=== PATIENT | male | born 1995 | race Caucasian/White ===

== ENCOUNTER 2023-08-24 14:47 | Emergency (ER) | payer OTHER ==
[~2023-08-24] VITALS: Ht 182.8 cm; Wt 72.6 kg
== END 2023-08-24 15:36 | disposition home or self-care (01) ==
LOC: ED 14:47
DX: S80.12XA Contusion of left lower leg, initial encounter (principal); J45.909 Unspecified asthma, uncomplicated; Z86.718 Personal history of other venous thrombosis and embolism; Z91.030 Bee allergy status; Z88.8 Allergy status to other drugs, medicaments and biological substances; X58.XXXA Exposure to other specified factors, initial encounter; Y93.89 Activity, other specified; Y92.89 Other specified places as the place of occurrence of the external cause; Y99.8 Other external cause status

== ENCOUNTER 2024-07-18 17:50 | Emergency (ER) | payer OTHER ==
[~2024-07-18] VITALS: Ht 182.8 cm; Wt 80.7 kg
[2024-07-18] MEDS ORDERED: PREDNISONE10 M1 PO (18:08)
[2024-07-18] MEDS ORDERED: HYDROXYZINE HCL25 MG PO (18:09)
[2024-07-18] MEDS ORDERED: methylPREDNISolone acetate 40 MG/ML VIAL IM ONE (18:10)
== END 2024-07-18 18:17 | disposition home or self-care (01) ==
LOC: ED 17:50
DX: L25.5 Unspecified contact dermatitis due to plants, except food (principal); Z91.030 Bee allergy status; Z88.8 Allergy status to other drugs, medicaments and biological substances

== ENCOUNTER 2024-10-21 17:38 | Emergency (ER) | payer OTHER ==
[~2024-10-21 17:38] MED LIST: HYDROXYZINE HCL25 MG PO; PREDNISONE10 M1 PO
[2024-10-21 19:06] LABS: BASO # 0.0 10*3/uL (0.0-0.1); BASO % 0.3 % (0.0-1.0); EOS # 0.0 10*3/uL (0.0-0.4); EOS % 0.2 % (1.0-4.0); MEAN CELL VOLUME 87.8 fl (80.0-94.0); MEAN CORPUSCULAR HGB 31.1 pg (27.0-31.0); MEAN PLATELET VOLUME 9.8 fl (9.6-12.3); MONO # 0.5 10*3/uL (0.1-1.0); MONO % 4.6 % (3.0-9.0); NEUT # 8.0 10*3/uL (2.3-7.9); NEUT % 80.6 % (47.0-73.0); NUCLEATED RED BLOOD CELL 0.0 % (0.0-0.0); NUCLEATED RED BLOOD CELL 0.0 10*3/uL (0.0-0.0); PLATELET COUNT AUTOMATED 175 10*3/uL (130-400); RED CELL DISTRI WIDTH 11.5 % (0-14.5)
[2024-10-21 19:22] LABS: URINE AMPHETAMINES Negative (1000ng/ml); URINE BARBITURATES Negative (200ng/ml); URINE BENZODIAZEPINES Positive (200ng/ml); URINE CANNABINOIDS (THC) Positive (50ng/ml); URINE COCAINE Negative (300ng/ml); URINE METHADONE Negative (300ng/ml); URINE OPIATES Negative (300ng/ml); URINE PHENCYCLIDINE Negative (25ng/ml)
[2024-10-21 19:30] LABS: BUN 14 mg/dl (9-23); CPK 186 U/L (34-171); SGPT/ALT 20 U/L (5-49)
[2024-10-21 19:49] LABS: ETHYL ALCOHOL < 3.0 mg/dl (<3)
[2024-10-22] MEDS ORDERED: KEPPRA500 MG PO (06:03)
[2024-10-22] MEDS ORDERED: LEVETIRACETAM 500 MG TAB PO ONE (06:05)
== END 2024-10-22 06:32 | disposition home or self-care (01) ==
LOC: ED 17:38
PROVIDERS: Emergency Medicine
DX: R56.9 Unspecified convulsions (principal); R00.1 Bradycardia, unspecified; Z91.030 Bee allergy status; Z88.8 Allergy status to other drugs, medicaments and biological substances; Z79.899 Other long term (current) drug therapy